=== PATIENT | male | born 1965 | race Caucasian/White ===

== ENCOUNTER 2017-04-22 10:30 | Emergency (ER) | payer OTHER ==
[2017-04-22 10:38] VITALS: TEMP 98.1; BMI 24.9
[2017-04-22] MEDS ORDERED: SODIUM CHLORIDE 1,000 ML IV ONE (10:41)
[2017-04-22] MEDS ORDERED: ONDANSETRON 4 MG/2 ML VIAL IVPB ONE (10:41)
[2017-04-22] MEDS ORDERED: ONDANSETRON 4 MG/2 ML VIAL ONE (10:45)
--- NOTE | 2017-04-22 10:53 | PDOC ---
History of Present Illness - General History Source: Patient Exam Limitations: No Limitations - History of Present Illness Initial Comments: 04/22/17 12:51 Patient is a 51 year old male with a significant past medical history of a htn and hld who presents to the ED with R flank pain since this morning. Patient states that the pain is radiating from R flank to the RLQ. He notes that the pain is intermittent at its worse it is 10/10, but right now it is 5/10. Patient reports nausea and vomiting. He denies taking anything for the pain. He denies any hx of kidney stones. He denies any recent injuries or falls. PCP - Dr. Ceron ALL - penicillin <Paty Narvaez - Last Filed: 04/22/17 12:56> <Alexis Arambula - Last Filed: 04/22/17 13:25> - General Chief Complaint: Pain Stated Complaint: flank pain BACK PAIN Time Seen by Provider: 04/22/17 10:40 Past History <Paty Narvaez - Last Filed: 04/22/17 12:56> - Past Medical History HTN: Yes Hypercholesterolemia: Yes - Psycho/Social/Smoking Cessation Hx Suicidal Ideation: No Smoking History: Never smoked Have you smoked in the past 12 months: No Information on smoking cessation initiated: No Hx Alcohol Use: No Drug/Substance Use Hx: No <Alexis Arambula - Last Filed: 04/22/17 13:25> - Past Medical History Allergies/Adverse Reactions: Allergies Allergy/AdvReac Type Severity Reaction Status Date / Time No Known Allergies Allergy Verified 04/22/17 10:35 Home Medications: Ambulatory Orders Amlodipine Besylate/Benazepril [Lotrel 5-10 mg Capsule] 1 each PO DAILY Pantoprazole Sodium [Protonix] 40 mg PO DAILY 04/22/17 Tamsulosin HCl [Flomax] 0.4 mg PO 04/22/17 Review of Systems - Review of Systems Able to Perform ROS?: Yes Comments:: 04/22/17 12:52 CONSTITUTIONAL: No reported: Fever, Chills, Diaphoresis, Generalized Weakness, Malaise, Loss of Appetite HEENT: No reported: Rhinorrhea, Nasal Congestion, Throat Pain, Throat Swelling, Difficulty Swallowing, Mouth Swelling, Ear Pain, Eye Pain, Visual Changes CARDIOVASCULAR: No reported: Chest Pain, Syncope, Palpitations, Irregular Heart Rate, Lightheadedness, Peripheral Edema RESPIRATORY: No reported: Cough, Shortness of Breath, SOB with Exertion, Orthopnea, Wheezing , Stridor, Hemoptysis GASTROINTESTINAL: reported: Nausea, Vomiting, No reported: Abdominal pain, Abdominal Distension, Diarrhea, Constipation, Melena, Hematochezia GENITOURINARY: Reported: Flank pain No reported: Dysuria, Frequency, Urgency, Hesitancy, Genital Pain MUSCULOSKELETAL: No reported: Myalgia, Arthralgia, Joint Swelling, Back pain, Neck Pain SKIN: No reported: Rash, Itching, Pallor HEMEATOLOGIC/IMMUNOLOGIC: No reported: Easy Bleeding, Easy Bruising, Lymphadenopathy, Frequent infections ENDOCRINE: No reported: Unexplained Weight Gain, Unexplained Weight Loss, Heat Intolerance , Cold Intolerance NEUROLOGIC: No reported: Headache, Focal Weakness, Paresthesias, Vertigo, Lightheadedness, Unsteady Gait, Seizure, Mental Status Changes, Incontinence PSYCHIATRIC: No reported: Anxiety, Depression <Paty Narvaez - Last Filed: 04/22/17 12:56> *Physical Exam - Vital Signs Last Vital Signs Temp Pulse Resp BP Pulse Ox 98.1 F 84 18 119/78 100 04/22/17 10:36 04/22/17 10:36 04/22/17 10:36 04/22/17 10:36 04/22/17 10:36 - Physical Exam Comments: 04/22/17 12:52 GENERAL: The patient is awake, alert, and fully oriented, Nontoxic - in no acute distress. HEAD: Normocephalic, atraumatic. EYES: extraocular movements intact, sclera anicteric, conjunctiva clear. ENT: Normal voice, Moist mucous membranes. NECK: Normal range of motion, supple LUNGS: Breath sounds equal, clear to auscultation bilaterally. No wheezes, no rhonchi, no rales. HEART: Regular rate and rhythm, without murmur, rub or gallop. ABDOMEN: Soft, nontender, normoactive bowel sounds. No guarding, no rebound.No CVA tenderness EXTREMITIES: Normal range of motion, no edema. No clubbing or cyanosis. No cords , erythema, or tenderness. NEUROLOGICAL: No facial asymmetry, Normal speech, PSYCH: Normal mood, normal affect. SKIN: Warm, Dry, normal turgor, <Koquincyy,Paty - Last Filed: 04/22/17 12:56> - Vital Signs Last Vital Signs Temp Pulse Resp BP Pulse Ox 98.1 F 84 18 119/78 100 04/22/17 10:36 04/22/17 10:36 04/22/17 10:36 04/22/17 10:36 04/22/17 10:36 <TyeshaAlexis chappell - Last Filed: 04/22/17 13:25> ED Treatment Course - LABORATORY CBC & Chemistry Diagram: 04/22/17 10:59 04/22/17 10:59 - ADDITIONAL ORDERS Additional order review: Laboratory Results 04/22/17 04/22/17 10:59 10:59 Sodium 138 Potassium 3.8 Chloride 104 Carbon Dioxide 24 Anion Gap 10 BUN 14 Creatinine 1.0 Creat Clearance w eGFR > 60 Random Glucose 132 H Calcium 9.2 Total Bilirubin 0.5 AST 30 ALT 34 Alkaline Phosphatase 69 Total Protein 7.1 Albumin 4.0 Urine Color Ltyellow Urine Appearance Clear Urine pH 5.0 Urine Protein Negative Urine Glucose (UA) Negative Urine Ketones Negative Urine Blood 2+ H Urine Nitrite Negative Urine Bilirubin Negative Urine Urobilinogen Negative Ur Leukocyte Esterase Negative Urine RBC 25 Urine WBC 1 Urine Mucus Rare 04/22/17 10:59 RBC 4.39 MCV 93.4 MCHC 34.9 RDW 12.9 MPV 8.5 Neutrophils % 65.7 Lymphocytes % 23.7 Monocytes % 9.3 Eosinophils % 0.8 Basophils % 0.5 - RADIOLOGY Radiology Studies Ordered: 04/22/17 12:56 EXAM#: TYPE/EXAM: SPIRAL- RENAL-STONE CT CT scan of the abdomen pelvis without oral and intravenous contrast Coronal and sagittal reformatted images were obtained No prior is available for comparison The visualized lung base appears unremarkable and the heart is within normal limits in size. Is mild pleural thickening in the left lung base, posteriorly. Evaluation of the liver, spleen, pancreas, gallbladder and both adrenal glands appear unremarkable. The stomach is not distended limiting evaluation of its wall. Both kidneys are within normal limits in size. There is mild dilatation of the left renal pelvis likely an extrarenal pelvis. Minimal right renal hydronephrosis is present with a punctate nonobstructing stone in its upper/midportion on axial image 54 measuring 1 mm. There is also mild right hydroureter without evidence of a stone. Urinary bladder is moderately distended without wall thickening or an intraluminal stone. There is no evidence of small bowel obstruction. Normal- appearing terminal ileum and appendix. Normal stool burden in the colon without wall thickening . Normal size prostate gland. Perirectal and pericecal fat are clear. No free fluid or free air in the abdomen pelvis. No gross enlarged lymph nodes are identified. Visualized osseous structures appear intact except for minimal anterolisthesis of L5 over S1 and mild to moderate degenerative disc disease IMPRESSION: Mild dilatation of the left renal pelvis likely and extrarenal pelvis. Mild right renal hydronephrosis and hydroureter without evidence of an obstructing stone likely due to recent passage of a stone. A punctate nonobstructing right renal stone is present measuring 1 mm on axial image 54. Reported By: Janice Srinivasan MD 04/22/17 1249 - Medications Given in the ED: ED Medications Discontinued Medications Generic Name Dose Route Start Last Admin Trade Name Freq PRN Reason Stop Dose Admin Sodium Chloride 1,000 mls @ 1,000 mls/hr 04/22/17 10:41 04/22/17 10:57 Normal Saline - IV 04/22/17 11:40 1,000 mls/hr .Q1H ONE Administration Ketorolac Tromethamine 30 mg 04/22/17 11:02 04/22/17 11:13 Toradol Injection - IVPUSH 04/22/17 11:03 30 mg ONCE ONE Administration Ondansetron HCl 4 mg 04/22/17 10:41 04/22/17 10:57 Zofran Injection IVPB 04/22/17 10:42 4 mg ONCE ONE Administration <Paty Narvaez - Last Filed: 04/22/17 12:56> - LABORATORY CBC & Chemistry Diagram: 04/22/17 10:59 04/22/17 10:59 <Alexis Arambula - Last Filed: 04/22/17 13:25> Medical Decision Making - Medical Decision Making 04/22/17 11:12 51y M hx of htn, hl, presents with complaint of R flank pain radiating to the front that is intermittent and associatd with vomiting. no associated fever/ chills. on exam the pt is well appearing, no flank tenderness, and soft abdomen. suspect kidney stones will obtain ua, cbc, cmp will give zofran, fluids, toradol will reassess A portion of this note was documented by scribe services under my direction. I have reviewed the details of the note, within reason, and agree with the documentation with the following case summary and management plan written by me 04/22/17 13:21 pt UA shows +blood CT cw passed stone, minimal righthydro with punctate 1mm stone. No other stones noted. The pt passed a stone after his CT whenhe urinated. pt asymptomatic currently will dc to [facility] with PMD I discussed the physical exam findings, ancillary test results and final diagnoses with the patient. I answered all of the patient's questions. The patient was satisfied with the care received and felt comfortable with the discharge plan and treatment plan. The patient will call their primary care physician within 24 hours to arrange follow-up and will return to the Emergency Department with any new, persistent or worsening symptoms. <Alexis Arambula - Last Filed: 04/22/17 13:25> *DC/Admit/Observation/Transfer - Attestations Scribe Attestion: 04/22/17 12:52 Documentation prepared by GARRISON Brock, acting as director medical surgical for Alexis Arambula MD. <Paty Narvaez - Last Filed: 04/22/17 12:56> - Discharge Dispostion Admit: No <Alexis Arambula - Last Filed: 04/22/17 13:25> Diagnosis at time of Disposition: Kidney stone on right side - Discharge Dispostion Disposition: HOME Condition at time of disposition: Improved - Referrals Referrals: Lisbet Ceron MD [Primary Care Provider] - - Patient Instructions Printed Discharge Instructions: DI for Kidney Stones Additional Instructions: It appears as if you passed your stone. There is a small 1mm stone in your R kidney, you may or may not pass it. Stay well hydrated. Follow up with your primary care doctor for further evaluation. Return for any concerns.
[2017-04-22] MEDS ORDERED: KETOROLAC TROMETHAMINE 30 MG/1 ML VIAL IVPUSH ONE (11:02)
[2017-04-22] MEDS ORDERED: KETOROLAC TROMETHAMINE 30 MG/1 ML VIAL ONE (11:13)
[2017-04-22 11:28] LABS: BASOPHIL 0.5 % (0-2.0); EOSINOPHIL 0.8 % (0-4.5); MCH 32.6 pg (25.7-33.7); MCHC 34.9 g/dl (32.0-35.9); MEAN CELL VOLUME 93.4 fl (80-96); MEAN PLT VOLUME 8.5 fl (7.5-11.1); NEUTROPHILS 65.7 % (42.8-82.8); PLATELET COUNT 205 K/MM3 (134-434); RDW 12.9 % (11.9-15.9); WHITE BLOOD COUNT 7.7 K/mm3 (4.0-10.0)
[2017-04-22 11:30] LABS: URINE APPEARANCE CLEAR; URINE BILIRUBIN NEGATIVE (NEGATIVE); URINE COLOR LTYELLOW; URINE GLUCOSE (UA) NEGATIVE (NEGATIVE); URINE KETONE NEGATIVE (NEGATIVE); URINE LEUK ESTERASE NEGATIVE (NEGATIVE); URINE NITRITE NEGATIVE (NEGATIVE); URINE PROTEIN NEGATIVE (NEGATIVE); URINE UROBILINOGEN NEGATIVE mg/dL (0.2-1.0)
[2017-04-22 11:37] LABS: URINE BLOOD 2+ (NEGATIVE)
[2017-04-22 11:41] LABS: URINE MUCUS RARE; URINE RBC 25 /hpf (0-3); URINE WBC 1 /hpf (3-5)
[2017-04-22 11:56] LABS: ALK PHOS 69 U/L (45-117); ANION GAP 10 (8-16); BILIRUBIN,TOTAL 0.5 mg/dL (0.2-1.0); CALCIUM 9.2 mg/dL (8.5-10.1); CO2 24 mmol/L (21-32); GLUCOSE,RANDOM 132 mg/dL (74-106); SGOT/AST 30 U/L (15-37); SGPT/ALT 34 U/L (12-78); TOT PROT 7.1 g/dl (6.4-8.2)
[2017-04-22 13:38] VITALS: BP 119/76; PULSE 57
== END 2017-04-22 13:37 | disposition home or self-care (01) ==
LOC: JER 10:30
PROC: 3E0333Z Introduction of Anti-inflammatory into Peripheral Vein, Percutaneous Approach (ICD-10-PCS; principal; 2017-04-22)
PROC: 3E033GC Introduction of Other Therapeutic Substance into Peripheral Vein, Percutaneous Approach (ICD-10-PCS; 2017-04-22)
DX: N13.2 Hydronephrosis with renal and ureteral calculous obstruction (principal); I10 Essential (primary) hypertension; E78.00 Pure hypercholesterolemia, unspecified; E78.5 Hyperlipidemia, unspecified
CPT/HCPCS: 36415; 74176; 80053; 81003; 81015; 85025; 96374; 96375; 99283-25

== ENCOUNTER 2019-01-01 10:37 | Emergency (ER) | payer OTHER ==
[2019-01-01 10:58] VITALS: BP 129/86; PULSE 78; TEMP 98.4; BMI 24.0
--- NOTE | 2019-01-01 12:40 | PDOC ---
History of Present Illness - General Chief Complaint: Chronic pain Stated Complaint: KNEE INJURY Time Seen by Provider: 01/01/19 12:00 History Source: Patient Exam Limitations: Clinical Condition - History of Present Illness Initial Comments: 01/01/19 12:35 Patient with no significant past medical history present with complaint of worsening swelling to left knee for a week now with worsening pain with ambulation. Patient denies any trauma or injury to knee.Patient report history of recurrent knee pains in the past. Timing/Duration: 1 week Past History - Past Medical History Allergies/Adverse Reactions: Allergies Allergy/AdvReac Type Severity Reaction Status Date / Time Penicillins Allergy Verified 01/01/19 10:58 Home Medications: Ambulatory Orders Amlodipine Besylate/Benazepril [Lotrel 5-10 mg Capsule] 1 each PO DAILY Pantoprazole Sodium [Protonix] 40 mg PO DAILY 04/22/17 Tamsulosin HCl [Flomax] 0.4 mg PO DAILY 04/22/17 Leg Brace [Knee Brace] 1 each MC DAILY #1 each 01/01/19 Naproxen 500 mg PO BID PRN #20 tablet. 01/01/19 COPD: No HTN: Yes Hypercholesterolemia: Yes - Suicide/Smoking/Psychosocial Hx Smoking History: Never smoked Have you smoked in the past 12 months: No Hx Alcohol Use: Yes (OCCASIONALLY) Drug/Substance Use Hx: No Review of Systems - Review of Systems Able to Perform ROS?: Yes Is the patient limited Wolof proficient: No Constitutional: Yes: See HPI, Other (knee swelling) HEENTM: No: Symptoms Reported, Recent change in vision Respiratory: No: Symptoms reported, Shortness of Breath, SOB with Exertion, SOB at Rest, Productive cough Cardiac (ROS): No: Symptoms Reported Musculoskeletal: Yes: See HPI, Joint Pain (left knee), Joint Swelling (left knee ), Muscle Pain (lateral side of left knee pain) *Physical Exam - Vital Signs Last Vital Signs Temp Pulse Resp BP Pulse Ox 98.4 F 78 16 129/86 97 01/01/19 10:55 01/01/19 10:55 01/01/19 10:55 01/01/19 10:55 01/01/19 10:55 - Physical Exam Comments: 01/01/19 12:40 GENERAL: Well developed, well nourished. Awake and alert. No acute distress. CARDIOVASCULAR: Regular rate and rhythm. No murmurs, rubs, or gallops. PULMONARY: No evidence of respiratory distress. MUSCULOSKELETAL : Mild tenderness to lateral aspect of left knee with moderate swelling over medial collateral ligament of left knee. Negative anterior posterior drawer test of left knee. Negative ballottement sign. No erythema to skin of left knee. No bony deformities SKIN: Warm and dry. Normal capillary refill. No rashes. No jaundice. NEUROLOGICAL: Alert, awake, appropriate. No motor deficits in the lower extremities. Gait is normal without ataxia. PSYCHIATRIC: Cooperative. Good eye contact. Appropriate mood and affect. 01/01/19 12:52 General Appearance: Yes: Nourished, Appropriately Dressed ED Treatment Course - RADIOLOGY Radiology Studies Ordered: Category Date Time Status KNEE 3 POS-LEFT [RAD] Stat Radiology 01/01/19 12:24 Ordered Medical Decision Making - Medical Decision Making 01/01/19 12:53 Patient with no significant past medical history present with complaint of worsening left knee pain and swelling over lateral aspect of left knee without trauma or injury. Patient report history of recurrent left knee pain. Exam significant for mild tenderness to lateral aspect of left knee with moderate swelling over medial collateral ligament of left knee. Negative anterior posterior drawer test of left knee. Negative ballottement sign. No erythema to skin of left knee. X-ray of left knee ordered to rule out acute pathology. Symptoms likely knee sprain versus meniscus tear. Treat based on imaging results 01/01/19 13:52 X-ray of left knee shows arthritis changes with mild soft tissue swelling. No acute pathology seen on x-ray. Patient is stable for discharge on naproxen with advice to elevate left knee with knee brace and orthopedics follow-up. *DC/Admit/Observation/Transfer Diagnosis at time of Disposition: Swelling of left knee joint, Left lateral knee pain - Discharge Dispostion Disposition: HOME Condition at time of disposition: Stable Decision to Admit order: No - Prescriptions Prescriptions: Leg Brace [Knee Brace] 1 each MC DAILY #1 each Naproxen 500 mg PO BID PRN #20 tablet.dr GIVENS Reason: hand pain - Referrals Referrals: Moody Brownlee DO [Staff Physician] - - Patient Instructions Printed Discharge Instructions: DI for Trigger Finger Additional Instructions: Your x-ray shows no fracture or dislocation. Knee x-rays shows arthritis changes in knee. Symptoms likely from Knee sprain. Take prescribed medication as needed for pain and follow-up with referred orthopedics for management of the knee swelling. - Post Discharge Activity
== END 2019-01-01 14:03 | disposition home or self-care (01) ==
LOC: JERFT 10:37
PROC: 2W3QX3Z Immobilization of Right Lower Leg using Brace (ICD-10-PCS; principal; 2019-01-01)
DX: M13.862 Other specified arthritis, left knee (principal)
CPT/HCPCS: 29505; 73562-TC-LT-FY; 99281-25

== ENCOUNTER 2022-11-02 04:09 | Day surgery (SDC) | payer OTHER ==
[2022-10-28 12:14] VITALS: BMI 26.6
[~2022-11-02 04:09] MED LIST: ceFAZolin SODIUM 1 GM VIAL IVPB ONE
[2022-11-02] MEDS ORDERED: MIDAZOLAM HCL 2 MG/2 ML SINGLE DOSE VIAL ONE (12:03)
[2022-11-02] MEDS ORDERED: ceFAZolin SODIUM 1 GM VIAL ONE (12:03)
[2022-11-02] MEDS ORDERED: ceFAZolin SODIUM 1 GM VIAL IVPB ONE (12:05)
[2022-11-02 15:17] VITALS: RESP 18
[2022-11-02 15:22] VITALS: BP 137/89; PULSE 68; TEMP 97.7
== END 2022-11-02 14:24 | disposition home or self-care (01) ==
LOC: JASU-SURG 04:09
PROVIDERS: ATTEND Urology
PROC: 0TF4XZZ Fragmentation in Left Kidney Pelvis, External Approach (ICD-10-PCS; principal; 2022-11-02 11:15)
DX: N20.0 Calculus of kidney (principal)

== ENCOUNTER 2023-03-17 19:16 | Observation (INO) | payer OTHER ==
[2023-03-17] MEDS ORDERED: ASPIRIN 81 MG CHEWABLE TABLETS PO ONE (19:34)
[2023-03-17 20:05] LABS: BASO % 0.4 % (0-2.0); EOS % 1.8 % (0-4.5); HEMATOCRIT 43.1 % (35.4-49); HEMOGLOBIN 14.6 GM/dL (11.7-16.9); LYMPH % 34.2 % (8-40); MCH 32.9 pg (25.7-33.7); MCHC 33.8 g/dl (32.0-35.9); MEAN CELL VOLUME 97.3 fl (80-96); MEAN PLT VOLUME 7.7 fl (7.5-11.1); MONO % 7.5 % (3.8-10.2); NEUT % 56.1 % (42.8-82.8); PLATELET COUNT 338 10^3/uL (134-434); RBC 4.43 M/mm3 (4.00-5.60); RDW 12.8 % (11.9-15.9); WHITE BLOOD COUNT 11.5 K/mm3 (4.0-10.0)
[2023-03-17 20:10] LABS: INR 0.99 (0.83-1.09); PROTHROMBIN TIME (PATIENT) 11.5 SEC (9.7-13.0)
[2023-03-17 20:12] VITALS: BMI 21.9
[2023-03-17 20:13] LABS: ACTIVATED PTT 33.9 SECONDS (25.2-36.5)
[2023-03-17 20:17] LABS: POTASSIUM 4.2 mmol/L (3.5-5.1)
[2023-03-17] MEDS ORDERED: ASPIRIN 81 MG CHEWABLE TABLETS ONE (20:17)
[2023-03-17 20:20] LABS: BLOOD UREA NITROGEN 15.8 mg/dL (7-18); CALCIUM 8.7 mg/dL (8.5-10.1)
[2023-03-17 20:21] LABS: ALBUMIN 3.9 g/dl (3.4-5.0); MAGNESIUM 2.5 mg/dL (1.8-2.4)
[2023-03-17 20:23] LABS: CREATININE 0.9 mg/dL (0.55-1.3)
[2023-03-17 20:24] LABS: BILIRUBIN,TOTAL 0.2 mg/dL (0.2-1); TOT PROT 7.7 g/dl (6.4-8.2)
[2023-03-17] MEDS ORDERED: SODIUM CHLORIDE 0.9% 500 ML INFUS.BAG IV ONE (20:29)
[2023-03-17] MEDS ORDERED: ONDANSETRON 4 MG/2 ML VIAL IVPUSH ONE (20:29)
[2023-03-17] MEDS ORDERED: ONDANSETRON 4 MG/2 ML VIAL ONE (20:35)
[2023-03-17] MEDS ORDERED: ATORVASTATIN CA 10 MG TABLET (FP) PO SCH (22:00)
[2023-03-17] MEDS ORDERED: FOLIC ACID INJECTION - 1 MG, THIAMINE HCL 100 MG, MULTIVIT INJECTION ADULT 10 ML in SOD... IVPB ONE (23:00)
[2023-03-18 07:20] LABS: BASO % 0.4 % (0-2.0); EOS % 2.4 % (0-4.5); HEMATOCRIT 42.1 % (35.4-49); HEMOGLOBIN 13.9 GM/dL (11.7-16.9); LYMPH % 27.7 % (8-40); MCHC 32.9 g/dl (32.0-35.9); MEAN CELL VOLUME 97.2 fl (80-96); MEAN PLT VOLUME 7.7 fl (7.5-11.1); MONO % 8.2 % (3.8-10.2); NEUT % 61.3 % (42.8-82.8); PLATELET COUNT 302 10^3/uL (134-434); RBC 4.34 M/mm3 (4.00-5.60); RDW 13.1 % (11.9-15.9); WHITE BLOOD COUNT 7.8 K/mm3 (4.0-10.0)
[2023-03-18 07:31] VITALS: RESP 18; TEMP 98
[2023-03-18 07:38] LABS: POTASSIUM 4.1 mmol/L (3.5-5.1)
[2023-03-18 07:43] LABS: CALCIUM 8.2 mg/dL (8.5-10.1)
[2023-03-18 07:44] LABS: ALBUMIN 3.4 g/dl (3.4-5.0); BLOOD UREA NITROGEN 10.6 mg/dL (7-18)
[2023-03-18 07:47] LABS: CREATININE 0.8 mg/dL (0.55-1.3)
[2023-03-18 07:48] LABS: TOT PROT 6.7 g/dl (6.4-8.2)
[2023-03-18 07:49] LABS: BILIRUBIN,TOTAL 0.2 mg/dL (0.2-1)
[2023-03-18 07:58] LABS: CHOLESTEROL 264 mg/dL (50-200); LDL CHOLESTEROL (ONLY SJRH) 149 mg/dL (5-100)
[2023-03-18 08:00] LABS: HDL CHOLESTEROL 48 mg/dL (40-60)
[2023-03-18] MEDS ORDERED: ASPIRIN 81 MG CHEWABLE TABLETS PO SCH (10:00)
[2023-03-18] MEDS ORDERED: MULTIVITAMINS (DAILY MVI) TABLET (FP) PO SCH (10:00)
[2023-03-18] MEDS ORDERED: LISINOPRIL 10 MG TABLET PO SCH (10:00)
[2023-03-18] MEDS ORDERED: FOLIC ACID 1 MG TABLET (FP) PO SCH (10:00)
[2023-03-18] MEDS ORDERED: THIAMINE HCL 100 MG TABLET (FP) PO SCH (10:00)
[2023-03-18 18:46] VITALS: BP 134/82; PULSE 76
[2023-03-18] MEDS ORDERED: ATORVASTATIN CA 10 MG TABLET (FP) PO SCH (22:00)
== END 2023-03-18 17:00 | disposition home or self-care (01) ==
LOC: JER 19:16 → JERBED 19:34 → J4W 03-18 02:13
PROVIDERS: ADMIT Internal Medicine; ATTEND Internal Medicine
PROC: 3E033GC Introduction of Other Therapeutic Substance into Peripheral Vein, Percutaneous Approach (ICD-10-PCS; principal; 2023-03-17)
DX: R55 Syncope and collapse (principal); R07.89 Other chest pain; F10.929 Alcohol use, unspecified with intoxication, unspecified; I10 Essential (primary) hypertension; E78.5 Hyperlipidemia, unspecified; Z88.0 Allergy status to penicillin
CPT/HCPCS: 0241U-QW; 36415; 71045-TC-FY; 78452-TC; 80053; 80061; 80307; 82550; 82553; 83690; 83735; 84439; 84443; 84484; 85025; 85379; 85610; 85730; 93005; 93010; 93017; 93306-TC; 93308; 96365; 96366; 96375; 99285-25; A9502; G0378

== ENCOUNTER 2023-09-16 07:08 | Day surgery (SDC) | payer OTHER ==
[2023-09-13 09:45] VITALS: BMI 25.8
[2023-09-16] MEDS ORDERED: TRANEXAMIC ACID 1000 MG/10 ML VIAL IVPUSH ONE (09:00)
[2023-09-16] MEDS ORDERED: VANCOMYCIN 1,000 MG VIAL (RESTRICTED TO ID ONLY) ONE (09:12)
[2023-09-16] MEDS ORDERED: oxyCODONE HCL 5 MG TABLET PO PRN ×2 (09:29)
[2023-09-16] MEDS ORDERED: ACETAMINOPHEN 325 MG TABLET (FP) PO PRN (09:29)
[2023-09-16] MEDS ORDERED: ONDANSETRON 4 MG/2 ML VIAL IVPUSH PRN ×2 (09:29→15:30)
[2023-09-16] MEDS ORDERED: LACTATED RINGERS SOLUTION 1,000 ML IV SCH ×2 (09:30→13:30)
[2023-09-16] MEDS ORDERED: BUPIVACAINE LIPOSOME/PF (EXPAREL) 266 MG/20 ML VIAL ONE (09:49)
[2023-09-16] MEDS ORDERED: MIDAZOLAM HCL 2 MG/2 ML SINGLE DOSE VIAL ONE ×2 (09:49→11:04)
[2023-09-16] MEDS ORDERED: ACETAMINOPHEN INJECTION 100 ML IVPB ONE (09:49)
[2023-09-16] MEDS ORDERED: BUPIVACAINE HCL/PF 0.5% (5 MG/ML) 30 ML VIAL IJ ONE (09:49)
[2023-09-16] MEDS ORDERED: PROPOFOL 20 ML ONE ×3 (10:10→12:14)
[2023-09-16] MEDS ORDERED: BUPIVACAINE HCL/PF 0.5% (5MG/ML) 10 ML VIAL ONE (10:23)
[2023-09-16] MEDS ORDERED: ceFAZolin SODIUM 1 GM VIAL ONE ×2 (10:32)
[2023-09-16] MEDS ORDERED: TRANEXAMIC ACID 1000 MG/10 ML VIAL ONE ×2 (10:32→11:54)
[2023-09-16] MEDS ORDERED: BUPIVICAINE 0.25%/MORPH PF/KETOROLAC - 51ML DISP.SYRINGE IA ONE (12:20)
[2023-09-16] MEDS ORDERED: MAG HYDROX/AL HYDROX/SIMETH 30 ML UNIT-DOSE CUP PO PRN (13:23)
[2023-09-16] MEDS: CEFAZOLIN 1 GM in DEXTROSE 5%-WATER - 50 ML IVPB SCH (20:30)
[2023-09-16] MEDS: ACETAMINOPHEN 1000 MG/100 ML BAG IVPB SCH (21:02)
[2023-09-16] MEDS: ASPIRIN 81 MG CHEWABLE TABLETS PO SCH (21:10)
[2023-09-16] MEDS: GABAPENTIN 300 MG CAPSULE PO SCH (21:10)
[2023-09-16] MEDS: SENNOSIDES/DOCUSATE COMBO (SENNA PLUS) TABLET (UD) PO SCH (21:11)
[2023-09-17 00:06] VITALS: RESP 18
[2023-09-17] MEDS: ACETAMINOPHEN 1000 MG/100 ML BAG IVPB SCH (01:19)
[2023-09-17] MEDS: CEFAZOLIN 1 GM in DEXTROSE 5%-WATER - 50 ML IVPB SCH (03:45)
[2023-09-17 06:39] VITALS: TEMP 98.4
[2023-09-17] MEDS ORDERED: TAMSULOSIN HCL 0.4 MG CAP PO SCH (08:30)
[2023-09-17 08:43] LABS: HEMATOCRIT 36.9 % (35.4-49); HEMOGLOBIN 12.3 G/dL (11.7-16.9); MCH 33.9 pg (25.7-33.7); MCHC 33.3 g/dl (32.0-35.9); MEAN PLT VOLUME 8.8 fl (7.5-11.1); PLATELET COUNT 251.1 10^3/uL (134-434); RBC 3.62 10^6/uL (4.00-5.60); RDW 13.5 % (11.9-15.9); WHITE BLOOD COUNT 17.7 10^3/uL (4.0-10.8)
[2023-09-17 09:00] LABS: CALCIUM 9.2 mg/dl (8.5-10.1); CREATININE 0.8 mg/dl (0.6-1.3); POTASSIUM 4.2 mmol/L (3.5-5.1)
[2023-09-17] MEDS ORDERED: ACETAMINOPHEN 500 MG TABLET (FP) PO SCH (09:00)
[2023-09-17 09:23] VITALS: BP 130/72; PULSE 89
[2023-09-17] MEDS ORDERED: BENAZEPRIL HCL 10 MG PO SCH (10:00)
[2023-09-17] MEDS ORDERED: LISINOPRIL 10 MG TABLET PO SCH (10:00)
[2023-09-17] MEDS ORDERED: PANTOPRAZOLE 40 MG TABLET PO SCH (10:00)
[2023-09-17] MEDS ORDERED: MULTIVITAMINS (DAILY MVI) TABLET (FP) PO SCH (10:00)
[2023-09-17] MEDS: ASPIRIN 81 MG CHEWABLE TABLETS PO SCH (10:04)
[2023-09-17] MEDS: SENNOSIDES/DOCUSATE COMBO (SENNA PLUS) TABLET (UD) PO SCH (10:05)
[2023-09-17] MEDS: GABAPENTIN 300 MG CAPSULE PO SCH (10:05)
== END 2023-09-17 12:50 | disposition home or self-care (01) ==
LOC: FASUSAT 07:08 → FM/S 15:10 → FASUSAT 09-17 12:50
PROC: 8E0Y0CZ Robotic Assisted Procedure of Lower Extremity, Open Approach (ICD-10-PCS; 2023-09-16)
PROC: 0SRD0JA Replacement of Left Knee Joint with Synthetic Substitute, Uncemented, Open Approach (ICD-10-PCS; principal; 2023-09-16 11:02)
DX: M17.12 Unilateral primary osteoarthritis, left knee (principal)
CPT/HCPCS: 20985; 27447; C1776; S2900; 36415; 73560-TC-LT-FY; 80048; 85027; 88305-TC; 88311-TC; 94760; 97010-GP; 97116-GP; 97162-GP

== ENCOUNTER 2024-07-31 04:35 | Day surgery (SDC) | payer OTHER ==
[2024-07-27 12:44] VITALS: BMI 26.2
[2024-07-31 10:14] VITALS: TEMP 97.8
[2024-07-31 10:22] VITALS: RESP 18
[2024-07-31 11:58] VITALS: BP 128/87; PULSE 64
== END 2024-07-31 10:55 | disposition home or self-care (01) ==
LOC: JASU-ENDO 04:35
PROVIDERS: ATTEND Internal Medicine Gastroenterology
PROC: 0DBL8ZX Excision of Transverse Colon, Via Natural or Artificial Opening Endoscopic, Diagnostic (ICD-10-PCS; 2024-07-31)
PROC: 0DBK8ZX Excision of Ascending Colon, Via Natural or Artificial Opening Endoscopic, Diagnostic (ICD-10-PCS; principal; 2024-07-31 09:30)
DX: Z12.11 Encounter for screening for malignant neoplasm of colon (principal); D12.2 Benign neoplasm of ascending colon; D12.3 Benign neoplasm of transverse colon; K64.8 Other hemorrhoids; K64.4 Residual hemorrhoidal skin tags; Z86.0100 Personal history of colon polyps, unspecified; Z80.0 Family history of malignant neoplasm of digestive organs
CPT/HCPCS: 88305-TC

== ENCOUNTER 2024-10-02 04:32 | Day surgery (SDC) | payer OTHER ==
[2024-09-20 09:09] VITALS: BMI 27.1
[2024-10-02 10:07] VITALS: TEMP 98
[2024-10-02 10:32] VITALS: BP 138/99; PULSE 62; RESP 23
== END 2024-10-02 10:52 | disposition home or self-care (01) ==
LOC: JASU-ENDO 04:32
PROVIDERS: ATTEND Internal Medicine Gastroenterology
PROC: 0DB78ZX Excision of Stomach, Pylorus, Via Natural or Artificial Opening Endoscopic, Diagnostic (ICD-10-PCS; 2024-10-02)
PROC: 0DB68ZX Excision of Stomach, Via Natural or Artificial Opening Endoscopic, Diagnostic (ICD-10-PCS; 2024-10-02)
PROC: 0DB48ZX Excision of Esophagogastric Junction, Via Natural or Artificial Opening Endoscopic, Diagnostic (ICD-10-PCS; 2024-10-02)
PROC: 0DB98ZX Excision of Duodenum, Via Natural or Artificial Opening Endoscopic, Diagnostic (ICD-10-PCS; principal; 2024-10-02 09:00)
DX: K21.00 Gastro-esophageal reflux disease with esophagitis, without bleeding (principal); K29.50 Unspecified chronic gastritis without bleeding; K44.9 Diaphragmatic hernia without obstruction or gangrene; K22.70 Barrett's esophagus without dysplasia
CPT/HCPCS: 88305-TC; 88342-TC